=== PATIENT | female | born 1960 | race Caucasian/White ===

== ENCOUNTER 2019-02-11 11:18 | Emergency (ER) | payer OTHER ==
--- NOTE | 2019-02-11 11:56 | EDPHY ---
General - History Smoking Status: Former smoker Time Seen by Provider: 02/11/19 11:36 Narrative: CLINICAL IMPRESSION: Pelvic and abdominal pain ASSESSMENT/PLAN: 58-year-old female with past medical history of ulcerative colitis, polyarthritis, fibromyalgia, and interstitial cystitis presents to the emergency department with 2 and half days of vague lower abdominal pain. No associated bloody stools, fever, chills, anorexia, vomiting, UTI symptoms, flank pain. Patient admits to postmenopausal bleeding for quite some time but no abnormal vaginal discharge or pain. Urine is completely normal with no suggestion of acute cystitis or pyelonephritis. Labs are also reassuring with no leukocytosis, anemia, electrolyte imbalance, or renal insufficiency. Pelvic ultrasound shows a non thickened endometrial lining, nonvisualized ovaries but otherwise no appreciable adnexal mass or tumor. Patient requested CT scan of the abdomen showing incidental findings of bilateral pulmonary nodules, nonobstructive gallstones, and a probable liver hemangioma. These results were relayed to the patient's and I shared Radiology follow-up and repeat scan recommendations. There was no evidence of acute flare of ulcerative colitis, colonic perforation, diverticulitis, intra-abdominal abscess, mesenteric adenitis. I advised patient follow up with her primary commission specialist, continue her home ulcerative colitis medications, follow up with control analyst to discuss postmenopausal bleeding, and warning signs return to ED sooner discussed in discharge and in-person. DIFFERENTIAL DX: Abdominal pain includes but not limited to urinary tract infection, pyelonephritis, ulcerative colitis flare, bowel perforation, ovarian torsion, ovarian cyst, endometriosis, uterine fibroids, acute appendicitis, acute diverticulitis, small-bowel obstruction, constipation ED PROCEDURES: See lab and/or imaging results below ED COURSE: 11:45 p.m.: Patient seen assessed by myself. Plan for IV, fluid bolus, labs, urine study and possible CT scan. Labs without significant abnormality including leukocytosis or renal insufficiency. Urine did not suggestive of infection. 2:15 p.m.: CT scan discussed with Dr. Sands. Patient has no acute abnormalities. Noted to have bilateral pulmonary nodules, the largest of which being 8 mm. Radiology recommendation repeat CT in 12 months to assess stability. Left lower lobe liver lesion, suggestive of hemangioma, recommendation repeat ultrasound in 6-12 months. 5 mm gallstone, nonobstructive. Also noted to be constipated. 2:40 p.m.: Upon discharge, patient mentions to me that she has had postmenopausal bleeding for quite some time now. She has not had an ultrasound for this. Will perform pelvic ultrasound to assess for this and any uterine abnormality given the lower pelvic location of her pain. Discharge held at this time. 4:09 p.m.: Ultrasound discussed with Dr. Liao. Endometrial lining measuring 0.2 cm, no mass, adnexal abnormality. No explanation for pelvic pain. CHIEF COMPLAINT: Abdominal pain HPI: 58-year-old female with past medical history of ulcerative colitis, polyarthritis, fibromyalgia, and interstitial cystitis presents to the emergency department with 2 and half days of vague lower abdominal pain and cramping. She reports this has been awakening her at night but is controlled well with her daily pain medications including tramadol and gabapentin. She is followed regularly by GI, takes her ulcerative colitis medications compliantly, reports she had a normal colonoscopy a year ago and is scheduled for repeat colonoscopy in 3 weeks. She reports no history of bloody stools but does have a frequent bowel movements which have been unchanged. No vomiting. No UTI symptoms or flank pain. No reported fever or chills, anorexia. She reports she has had pain like this similarly over many years and has never had an answer as to what causes this. She does report postmenopausal bleeding for the last several years but has never seen an control analyst for this. She does occasionally take estrogen. She otherwise denies any foul-smelling abnormal vaginal discharge or concern for STDs. PAST MEDICAL HISTORY: Ulcerative colitis, arthritis, fibromyalgia , interstitial cystitis See nurse/triage notes for additional history if applicable Pertinent Past Surgical History: None mention Family History: Noncontributory Social History: Nonsmoker REVIEW OF SYSTEMS: All other systems negative Constitutional: No fever, no chills, appetite change. Cardiovascular: No chest pain, no palpitations. Respiratory: No cough, no shortness of breath. Gastrointestinal: Positive for abdominal pain, no vomiting, diarrhea. Genitourinary: No hematuria, dysuria, flank pain, positive for pelvic pain Musculoskeletal: No back pain, joint swelling, joint pain, myalgias. Skin: No rashes, color change. Neurological: No headache, dizziness, weakness. PHYSICAL EXAM: General Appearance: Alert, oriented, appropriate, cooperative, NAD, sitting on the bed reading a book, does not appear in distress well hydrated, non-toxic appearing, VSS, no hypoxia. Respiratory: There are no retractions, lungs are clear to auscultation. Cardiac: Regular rate and rhythm, no murmurs or gallops. Gastrointestinal: Abdomen is soft, generally tender lower abdomen and suprapubic region, bowel sounds normal, no masses/hernia, no rigidity, guarding or focal peritoneal findings. exam deferred by patient Neurological: [ Alert and oriented x 3 Skin: Warm, dry, no rashes, no nodules on palpation. Musculoskeletal: Extremities are symmetrical, full range of motion, no tenderness, deformity, swelling, or erythema. No flank pain Psychiatric: Patient is oriented X 3, there is no agitation. MEDICAL DECISION MAKING: Patient was seen independently. Secondary supervising physician at time of evaluation was Dr. Carter. Diagnosis: Lower abdominal and pelvic pain . New, requires workup Summary: See Assessment and Plan for summary of ED visit Clinical lab tests: ordered / reviewed. Independent visualization of images, tracing, or specimens: Yes. Discussed patient with another provider: Radiologist Patient Progress: Stable for discharge. (Mckinley Herron) Discussion: The patient was evaluated and managed by the Physician [employer] Builder [employer]icer. I discussed the patient's presentation and course with the midlevel provider with them and agree with the evaluation. My co-signature indicates that I have reviewed this chart and I agree with the findings and plan of care as documented. I am the secondary supervising physician. (Latesha Carter) - Objective Vital Signs: Initial Vital Signs Temperature (C) 36.8 C 02/11/19 11:26 Heart Rate 98 02/11/19 11:26 Respiratory Rate 18 02/11/19 11:26 Blood Pressure 170/98 H 02/11/19 11:26 O2 Sat (%) 96 02/11/19 11:26 O2 Delivery Mode Room Air Allergies/Adverse Reactions: No Known Allergies Allergy (Verified 02/11/19 11:25) Home Medications: Medication Instructions Recorded Amitriptyline HCl 02/11/19 Gabapentin 02/11/19 Lialda 02/11/19 predniSONE 02/11/19 traMADol 02/11/19 Laboratory Results: Laboratory Results 02/11/19 11:30 02/11/19 11:30 Departure - Departure Disposition: Home, Routine, Self-Care Clinical Impression: Abdominal pain Condition: Fair Instructions: Acute Abdominal Pain (ED) Additional Instructions: DISCHARGE INSTRUCTIONS FROM YOUR DOCTOR Thank you for visiting our emergency department today. You were treated by a physician commercial lines account assistant today and your case was reviewed with our ED Attending physician. Please keep in mind that discharge from the emergency department does not mean that there is nothing wrong - it simply means that we have not identified an emergency condition that requires further evaluation or treatment in the hospital. You should always plan to follow up with primary care for re- evaluation of your condition in the next 2-3 days. If you have been referred to a specialist, please call as soon as possible (today or tomorrow) to schedule your follow up appointment at the appropriate time. EVALUATION IN THE EMERGENCY DEPARTMENT INCLUDED LABS, URINE, AND CT SCAN. YOU HAVE NO SIGNS OF A BLADDER INFECTION, LABS ARE REASSURING WITH NO BUMP IN YOUR INFECTION FIGHTING COUNT, NORMAL KIDNEY FUNCTION AND ELECTROLYTES. CT SCAN WAS READ BY THE RADIOLOGY. YOU HAVE NO ACUTE ABNORMALITY OR CONCERN FOR AN ACUTE SURGICAL EMERGENCY. YOU HAVE INCIDENTAL PULMONARY NODULES WHICH MAY BE BENIGN. THE LARGEST OF WHICH IS MEASURING 8 MM AND THEY RECOMMEND REPEAT CT SCAN IN 12 MONTHS TO ASSESS FOR STABILITY. YOU HAVE A LIVER LESION THAT IS SUGGESTIVE OF A HEMANGIOMA, RADIOLOGY RECOMMENDS REPEAT ULTRASOUND IN 6-12 MONTHS TO ASSESS FOR STABILITY. YOU HAVE SMALL GALLSTONES THAT ARE NOT OBSTRUCTING. YOU ALSO APPEAR TO BE CONSTIPATED. YOUR PELVIC ULTRASOUND SHOWED A NORMAL ENDOMETRIAL LINING, NO OBVIOUS OVARIAN MASS OR ADNEXAL MASS. OVARIES WERE NOT WELL VISUALIZED ON ULTRASOUND BUT WERE WITHOUT ABNORMALITY ON CT SCAN. PLEASE FOLLOW-UP WITH APPRENTICE PLANT ATTENDANT TO DISCUSS POSTMENOPAUSAL BLEEDING. YOU CAN TRY OVER-THE- COUNTER CONSTIPATION REMEDIES LIKE MIRALAX OR SENOKOT. PLEASE FOLLOW-UP WITH PRIMARY GI DOCTOR AND PRIMARY CARE. RETURN TO THE EMERGENCY DEPARTMENT FOR SEVERE OR WORSENING ABDOMINAL PAIN, DEVELOPMENT OF FEVER CHILLS, VOMITING, DIARRHEA, BLOODY STOOLS OR ANY OTHER CONCERNS. People present with illnesses and injuries in different ways, and it is always possible that we have missed something. You may always return for re-evaluation if symptoms worsen or if they are not improving or if you develop new/different symptoms. Again, thank you for choosing our emergency department. We hope that you feel better. Referrals: Alia George MD [Primary Care Provider] - 2-3 days, call for appt. Myrna Jules DO [Doctor of Osteopathy] - As per Instructions
[2019-02-11 12:08] LABS: PLATELET COUNT 227 10^3/uL (150-400)
[2019-02-11] MEDS ORDERED: IOPAMIDOL (ISOVUE-300) 100 ML BTL ONE (12:56)
[2019-02-11 16:23] VITALS: BP 140/90
== END 2019-02-11 16:23 | disposition home or self-care (01) ==
DX: R10.2 Pelvic and perineal pain (principal); N95.0 Postmenopausal bleeding; Z87.19 Personal history of other diseases of the digestive system
CPT/HCPCS: Q9967